=== PATIENT | female | born 1940 | race Two or more races ===

== ENCOUNTER 2017-11-09 21:23 | Emergency (ER) | payer MEDICARE, OTHER ==
[~2017-11-09] VITALS: Ht 157.5 cm; Wt 72.6 kg
[~2017-11-09 21:23] MED LIST: ANTIVERT12.5 MG ORAL; COLACE100 MG ORAL; NORCO 5-325 TA1 EACH ORAL
[2017-11-09] MEDS ORDERED: AZITHROMYC200 MG/5 M ORAL (21:35)
[2017-11-09] MEDS ORDERED: SINGULAIR10 MG ORAL (21:35)
[2017-11-09] MEDS ORDERED: ALBUTEROL SULF8.5 GM INH (21:35)
[2017-11-09] MEDS ORDERED: MEDROL DOSEPAK4 MG ORAL (21:35)
[2017-11-09 21:44] VITALS: BP 153/64
[2017-11-09] MEDS ORDERED: Sodium Chloride 500ML 500 ML IV ONE (21:44)
[2017-11-09] MEDS ORDERED: Solu-MEDROL 125mg Inj IVP ONE (22:00)
[2017-11-09] MEDS: Albuterol ud Inhalation HHN SCH ×3 (22:10→22:12)
[2017-11-09] MEDS: Ipratropium 0.02% Inh Soln 2.5ml UD HHN SCH ×2 (22:10→22:11)
[2017-11-09 22:36] LABS: APPEARANCE,URINE CLEAR; BILIRUBIN, URINE NEGATIVE (NEGATIVE); COLOR,URINE PALE YELLOW; GLUCOSE, URINE (UA) NEGATIVE (NEGATIVE); KETONES,URINE NEGATIVE (NEGATIVE); LEUKOCYTE ESTERASE ,URINE 1+ (NEGATIVE); NITRITE,URINE NEGATIVE (NEGATIVE); PH,URINE 6 (4.5-8.0); PROTEIN,URINE NEGATIVE (NEGATIVE); UROBILINOGEN,URINE NORMAL MG/DL (0.0-1.0)
[2017-11-09 22:36] LABS: BASOPHILS % (AUTO) 0.5 % (0.0-2.0); EOSINOPHILS % (AUTO) 0.1 % (0.0-3.0); HEMATOCRIT 41.6 % (37.0-47.0); HEMOGLOBIN 13.9 G/DL (12.0-16.0); LYMPHOCYTES % (AUTO) 20.4 % (20.0-45.0); MEAN CORPUSCULAR VOLUME 95 FL (80-99); MONOCYTES % (AUTO) 4.5 % (1.0-10.0); NEUTROPHILS % (AUTO) 74.6 % (45.0-75.0); PLATELET COUNT 236 K/UL (150-450); RED BLOOD COUNT 4.38 M/UL (4.20-5.40); RED CELL DISTRIBUTION WIDTH 12.7 % (11.6-14.8); WHITE BLOOD COUNT 5.3 K/UL (4.8-10.8)
[2017-11-09 22:44] LABS: ANION GAP 10 mmol/L (5-15); BLOOD UREA NITROGEN 14 mg/dL (7-18); CALCIUM 9.7 MG/DL (8.5-10.1); CARBON DIOXIDE 26 MMOL/L (21-32); CHLORIDE 102 MMOL/L (98-107); CREATININE 0.9 MG/DL (0.55-1.30); POTASSIUM 4.7 MMOL/L (3.5-5.1); SODIUM 138 MMOL/L (136-145)
[2017-11-09 22:57] LABS: ALANINE AMINOTRANSFERASE 28 U/L (12-78); ALBUMIN 3.7 G/DL (3.4-5.0); ALKALINE PHOSPHATASE 85 U/L (46-116); ASPARTATE AMINO TRANSFERASE 24 U/L (15-37); BILIRUBIN,TOTAL 0.2 MG/DL (0.2-1.0); CKMB 1.7 NG/ML (0.0-3.6); CREATINE KINASE 62 U/L (26-308)
[2017-11-09 23:00] VITALS: BP 146/57
[2017-11-09] MEDS ORDERED: AMOXICILLIN500 MG ORAL (23:23)
[2017-11-10 00:05] VITALS: BP 146/57
--- NOTE | 2017-11-10 00:59 | Emergency Room Report ---
History of Present Illness General Chief Complaint: Dyspnea/Respdistress Source: Patient Present Illness HPI 77-year-old female presents ED for evaluation. States that she is having cough and congestion for the last 5 days. Cough is productive of yellowish phlegm. seen by PMD and was prescribed Z-Ken, albuterol. States her cough is persisting. Denies fevers or chills. Denies chest pain. States she short of breath. History of asthma. Denies contacts or recent travel. No other aggravating relieving factors. Denies any other associated symptoms Allergies: Coded Allergies: No Known Allergies (Verified Allergy, Unknown, 01/01/10) Patient History Past Medical History: HTN, asthma Past Surgical History: none Pertinent Family History: none Social History: Denies: smoking, alcohol use, drug use Now: No Immunizations: UTD Reviewed Nursing Documentation: PMH: Agreed, PSxH: Agreed Nursing Documentation-PMH Past Medical History: No History, Except For Hx Cardiac Problems: No - High Cholesterol Hx Hypertension: Yes Hx Pacemaker: No Hx Asthma: Yes Hx COPD: No Hx Diabetes: Yes - Borderline Hx Cancer: No Hx Gastrointestinal Problems: No Hx Dialysis: No Hx Cerebrovascular Accident: No Hx Seizures: No Review of Systems All Other Systems: negative except mentioned in HPI Physical Exam Vital Signs Date Time Temp Pulse Resp B/P (MAP) Pulse Ox O2 Delivery O2 Flow Rate FiO2 11/09/17 21:28 97.9 75 16 150/82 99 Room Air 11/09/17 22:12 21 Sp02 EP Interpretation: reviewed, normal General Appearance: no apparent distress, alert, GCS 15, non-toxic Head: normocephalic, atraumatic Eyes: bilateral eye normal inspection, bilateral eye PERRL ENT: hearing grossly normal, normal pharynx, no angioedema, normal voice Neck: full range of motion, supple/symm/no masses Respiratory: chest non-tender, normal breath sounds, speaking full sentences, wheezing Cardiovascular #1: regular rate, rhythm, no edema Cardiovascular #2: 2+ carotid (R), 2+ carotid (L), 2+ radial (R), 2+ radial (L) , 2+ dorsalis pedis (R), 2+ dorsalis pedis (L) Gastrointestinal: normal bowel sounds, non tender, soft, non-distended, no guarding, no rebound Rectal: deferred Genitourinary: normal inspection, no CVA tenderness Musculoskeletal: back normal, gait/station normal, normal range of motion, non- tender Neurologic: alert, oriented x3, responsive, motor strength/tone normal, sensory intact, speech normal Psychiatric: judgement/insight normal, memory normal, mood/affect normal, no suicidal/homicidal ideation Reflexes: 3+ bicep (R), 3+ bicep (L), 3+ tricep (R), 3+ tricep (L), 3+ knee (R) , 3+ knee (L) Skin: normal color, no rash, warm/dry, well hydrated Lymphatic: no adenopathy Medical Decision Making Diagnostic Impression: Primary Impression: Atypical pneumonia ER Course Hospital Course 77-year-old female presents to ED complaining of wheezing, cough Differential diagnoses include: URI, bronchitis, asthma/COPD, pneumonia Clinical course Patient placed on stretcher. After initial history, physical exam reveals an elderly female in no acute distress. Bilateral TM unremarkable. No pharyngeal erythema. No tonsillar exudates. No lymphadenopathy. wheezing I ordered labs, IV fluids, nebs, solumedrol, ekg, chest x-ray. Labs reviewed-no leukocytosis, hemoglobin/hematocrit stable, electrolytes okay, trop negative, EKG - NSR, no acute ischemic changes interpreted by me Chest x-ray shows RLL atelectasis ? consolidation On reassessment patient states she feels better. Per curb-65 criteria, patient does not require admission. Patient can be safely discharged to home with outpatient therapy. Patient agrees with plan. Diagnosis - atypical pneumonia Stable and discharged home with prescriptions for amoxicillin. Instructed to followup with PMD. Return to ED if symptoms recur or worsen Labs Test 11/09/17 22:00 11/09/17 22:20 White Blood Count 5.3 K/UL (4.8-10.8) Red Blood Count 4.38 M/UL (4.20-5.40) Hemoglobin 13.9 G/DL (12.0-16.0) Hematocrit 41.6 % (37.0-47.0) Mean Corpuscular Volume 95 FL (80-99) Mean Corpuscular Hemoglobin 31.8 PG (27.0-31.0) Mean Corpuscular Hemoglobin Concent 33.5 G/DL (32.0-36.0) Red Cell Distribution Width 12.7 % (11.6-14.8) Platelet Count 236 K/UL (150-450) Mean Platelet Volume 8.9 FL (6.5-10.1) Neutrophils (%) (Auto) 74.6 % (45.0-75.0) Lymphocytes (%) (Auto) 20.4 % (20.0-45.0) Monocytes (%) (Auto) 4.5 % (1.0-10.0) Eosinophils (%) (Auto) 0.1 % (0.0-3.0) Basophils (%) (Auto) 0.5 % (0.0-2.0) Sodium Level 138 MMOL/L (136-145) Potassium Level 4.7 MMOL/L (3.5-5.1) Chloride Level 102 MMOL/L (98-107) Carbon Dioxide Level 26 MMOL/L (21-32) Anion Gap 10 mmol/L (5-15) Blood Urea Nitrogen 14 mg/dL (7-18) Creatinine 0.9 MG/DL (0.55-1.30) Estimat Glomerular Filtration Rate mL/min (>60) Glucose Level 148 MG/DL (74-106) Lactic Acid Level 2.40 mmol/L (0.66-2.22) Calcium Level 9.7 MG/DL (8.5-10.1) Total Bilirubin 0.2 MG/DL (0.2-1.0) Aspartate Amino Transf (AST/SGOT) 24 U/L (15-37) Alanine Aminotransferase (ALT/SGPT) 28 U/L (12-78) Alkaline Phosphatase 85 U/L (46-116) Total Creatine Kinase 62 U/L (26-308) Creatine Kinase MB 1.7 NG/ML (0.0-3.6) Creatine Kinase MB Relative Index 2.7 Troponin I 0.000 ng/mL (0.000-0.056) Pro-B-Type Natriuretic Peptide 75 pg/mL (0-125) Total Protein 7.5 G/DL (6.4-8.2) Albumin 3.7 G/DL (3.4-5.0) Globulin 3.8 g/dL Albumin/Globulin Ratio 1.0 (1.0-2.7) Urine Color Pale yellow Urine Appearance Clear Urine pH 6 (4.5-8.0) Urine Specific Lee 1.005 (1.005-1.035) Urine Protein Negative (NEGATIVE) Urine Glucose (UA) Negative (NEGATIVE) Urine Ketones Negative (NEGATIVE) Urine Occult Blood Negative (NEGATIVE) Urine Nitrite Negative (NEGATIVE) Urine Bilirubin Negative (NEGATIVE) Urine Urobilinogen Normal MG/DL (0.0-1.0) Urine Leukocyte Esterase 1+ (NEGATIVE) Urine RBC 0-2 /HPF (0 - 2) Urine WBC 2-4 /HPF (0 - 2) Urine Squamous Epithelial Cells Few /LPF (NONE/OCC) Urine Bacteria Few /HPF (NONE) EKG Diagnostic Results Rate: normal Rhythm: NSR ST Segments: no acute changes ASA given to the pt in ED: No Rhythm Strip Diag. Results EP Interpretation: yes Rhythm: NSR, no PVC's, no ectopy Chest X-Ray Diagnostic Results Chest X-Ray Diagnostic Results : Chest X-Ray Ordered: Yes # of Views/Limited/Complete: 1 View Indication: Other - cough EP Interpretation: Yes Interpretation: no pneumothorax, no acute cardiopulmonary disease, other - atelectasis RLL Impression: Other - ?PNA Electronically Signed by: Electronically signed by Duc Trimble MD Last Vital Signs Date Time Temp Pulse Resp B/P (MAP) Pulse Ox O2 Delivery O2 Flow Rate FiO2 11/10/17 00:05 97.9 82 14 146/57 95 Room Air 21 Status: improved Disposition: HOME, SELF-CARE Condition: Stable Scripts Amoxicillin* (AMOXIL*) 500 Mg Capsule 500 MG ORAL THREE TIMES A DAY, #21 CAP Prov: DUC TRIMBLE M.D. 11/09/17 Patient Instructions: Community-Acquired Pneumonia, Adult, [id number] DUC TRIMBLE M.D. Nov 10, 2017 00:59
--- NOTE | 2017-11-10 10:06 | Diagnostic Imaging Report ---
Indication: Dyspnea Technique: XRAY Chest 1v Comparison: 01/31/2013 Findings: Heart size and mediastinal contours are within normal limits. There is subtle hazy asymmetric opacity in the right lower lung. There is no pleural effusion or pneumothorax. There are degenerative changes of the spine. No acute osseous abnormality seen. Impression: Subtle hazy opacity in the right lower lung possibly related to subsegmental atelectasis. Developing infectious infiltrate not entirely excluded. Clinical correlation and follow-up exam recommended. This corresponds with the preliminary interpretation of the treating ER physician as documented in the electronic medical record.
--- NOTE | 2017-11-15 14:51 | Cardiology Report ---
APPROVED REPORT EKG Measurement Heart [id number] Normal sinus rhythm Low voltage QRS Borderline ECG
== END 2017-11-10 00:05 | disposition home or self-care (01) ==
LOC: EMR 22:12
DX: J18.9 Pneumonia, unspecified organism (principal); I10 Essential (primary) hypertension; J45.909 Unspecified asthma, uncomplicated
CPT/HCPCS: 36415; 71045; 80053; 81003; 82550; 82553; 83605; 83880; 84484; 85025; 86710; 87040; 93005; 94640; 94664; 96361; 96374; 99284; J2930

== ENCOUNTER 2018-09-21 10:20 | Emergency (ER) | payer MEDICARE, OTHER ==
[~2018-09-21] VITALS: Ht 157.5 cm; Wt 74.8 kg
[~2018-09-21 10:20] MED LIST changes: +ALBUTEROL SULF8.5 GM INH; +AMOXICILLIN500 MG ORAL; +AZITHROMYC200 MG/5 M ORAL; +MEDROL DOSEPAK4 MG ORAL; +SINGULAIR10 MG ORAL
[2018-09-21 10:30] VITALS: BP 153/56
--- NOTE | 2018-09-21 10:34 | Emergency Room Report ---
History of Present Illness General Chief Complaint: cough Source: Patient Present Illness HPI Patient presents with complaints of cough and congestion over the past 2 days Daughter denies any fevers Reports that she had the flu shot this year however no Pneumovax Denies any chest pain with this denies any back or flank pain Denies any vomiting or diarrhea Denies any recent travel Denies any rash denies any change in medications Denies any chest pain or heaviness with this Allergies: Coded Allergies: No Known Allergies (Verified Allergy, Unknown, 01/01/10) Patient History Past Medical History: see triage record Pertinent Family History: none Reviewed Nursing Documentation: PMH: Agreed; PSxH: Agreed Nursing Documentation-PMH Hx Cardiac Problems: No - High Cholesterol Hx Hypertension: Yes Hx Pacemaker: No Hx Asthma: Yes Hx COPD: No Hx Diabetes: Yes - Borderline Hx Cancer: No Hx Gastrointestinal Problems: No Hx Dialysis: No Hx Cerebrovascular Accident: No Hx Seizures: No Review of Systems All Other Systems: negative except mentioned in HPI Physical Exam 98% on room air which is normal Sp02 EP Interpretation: reviewed, normal General Appearance: well appearing, no apparent distress Head: normocephalic, atraumatic Eyes: bilateral eye PERRL, bilateral eye EOMI ENT: hearing grossly normal, normal pharynx, TMs + canals normal, uvula midline Neck: full range of motion, supple, no meningismus, no bony tend Respiratory: lungs clear, normal breath sounds, no rhonchi, no respiratory distress, no retraction, no accessory muscle use Cardiovascular #1: normal peripheral pulses, regular rate, rhythm, no edema, no gallop, no JVD, no murmur Gastrointestinal: normal bowel sounds, non tender, soft, no mass, no organomegaly, non-distended, no guarding, no hernia, no pulsatile mass, no rebound Genitourinary: no CVA tenderness Musculoskeletal: normal inspection Neurologic: oriented x3, responsive, 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, motor strength/ tone normal, sensory intact Psychiatric: mood/affect normal Skin: normal color, no rash, warm/dry, palpation normal Lymphatic: normal inspection, no adenopathy Medical Decision Making Diagnostic Impression: Primary Impression: URI (upper respiratory infection) ER Course Patient is a fairly complex patient with multiple differential to consideration including but not limited to cardiac cardiopulmonary and vascular emergencies Patient's imaging and blood work are at baseline levels Patient continues to saturate well Findings and exam is consistent with upper respiratory infection and patient stable for close outpatient follow-up Labs Test 09/21/18 10:40 White Blood Count 5.7 K/UL (4.8-10.8) Red Blood Count 4.60 M/UL (4.20-5.40) Hemoglobin 13.9 G/DL (12.0-16.0) Hematocrit 42.7 % (37.0-47.0) Mean Corpuscular Volume 93 FL (80-99) Mean Corpuscular Hemoglobin 30.1 PG (27.0-31.0) Mean Corpuscular Hemoglobin Concent 32.4 G/DL (32.0-36.0) Red Cell Distribution Width 11.8 % (11.6-14.8) Platelet Count 229 K/UL (150-450) Mean Platelet Volume 8.7 FL (6.5-10.1) Neutrophils (%) (Auto) 53.3 % (45.0-75.0) Lymphocytes (%) (Auto) 30.0 % (20.0-45.0) Monocytes (%) (Auto) 11.3 % (1.0-10.0) Eosinophils (%) (Auto) 4.0 % (0.0-3.0) Basophils (%) (Auto) 1.4 % (0.0-2.0) Sodium Level 140 MMOL/L (136-145) Potassium Level 4.1 MMOL/L (3.5-5.1) Chloride Level 104 MMOL/L (98-107) Carbon Dioxide Level 28 MMOL/L (21-32) Anion Gap 8 mmol/L (5-15) Blood Urea Nitrogen 9 mg/dL (7-18) Creatinine 0.7 MG/DL (0.55-1.30) Estimat Glomerular Filtration Rate mL/min (>60) Glucose Level 73 MG/DL (74-106) Calcium Level 9.6 MG/DL (8.5-10.1) Total Bilirubin 0.3 MG/DL (0.2-1.0) Aspartate Amino Transf (AST/SGOT) 16 U/L (15-37) Alanine Aminotransferase (ALT/SGPT) 36 U/L (12-78) Alkaline Phosphatase 104 U/L (46-116) Total Creatine Kinase 73 U/L (26-308) Creatine Kinase MB 1.1 NG/ML (0.0-3.6) Creatine Kinase MB Relative Index 1.5 Troponin I 0.001 ng/mL (0.000-0.056) Pro-B-Type Natriuretic Peptide 111 pg/mL (0-125) Total Protein 7.4 G/DL (6.4-8.2) Albumin 3.8 G/DL (3.4-5.0) Globulin 3.6 g/dL Albumin/Globulin Ratio 1.1 (1.0-2.7) Rhythm Strip Diag. Results EP Interpretation: yes Rate: 60 Rhythm: NSR, no PVC's, no ectopy Chest X-Ray Diagnostic Results Chest X-Ray Diagnostic Results : Chest X-Ray Ordered: Yes # of Views/Limited/Complete: 1 View Indication: Shortness of Breath EP Interpretation: Yes Interpretation: no consolidation, no effusion, no pneumothorax, other Impression: Other - Mild atelectasis bilaterally Electronically Signed by: Milady Vega DO Status: improved Disposition: HOME, SELF-CARE Condition: Improved Scripts Promethazine HCl/Codeine (Prometh-Codein 6.25-10 mg/5 ml) 5 Ml Syrup 5 ML PO Q8HR for 5 Days, ML Prov: Milady Vega DO 09/21/18 Additional Instructions: Patient is provided with the discharge instructions notified to follow up with primary doctor in the next 2-3 days otherwise return to the er with any worsening symptoms. Please note that this report is being documented using [employer]oco[employer] technology. This can lead to erroneous entry secondary to incorrect interpretation by the dictating instrument. Milady Vega DO Sep 21, 2018 10:34
[2018-09-21] MEDS ORDERED: Levalbuterol Inh UD 1.25mg/0.5ml HHN ONE (11:00)
[2018-09-21 11:05] LABS: BASOPHILS % (AUTO) 1.4 % (0.0-2.0); HEMATOCRIT 42.7 % (37.0-47.0); HEMOGLOBIN 13.9 G/DL (12.0-16.0); MEAN CORPUSCULAR VOLUME 93 FL (80-99); MONOCYTES % (AUTO) 11.3 % (1.0-10.0); NEUTROPHILS % (AUTO) 53.3 % (45.0-75.0); PLATELET COUNT 229 K/UL (150-450); RED CELL DISTRIBUTION WIDTH 11.8 % (11.6-14.8); WHITE BLOOD COUNT 5.7 K/UL (4.8-10.8)
[2018-09-21 11:10] LABS: ANION GAP 8 mmol/L (5-15); BLOOD UREA NITROGEN 9 mg/dL (7-18); CALCIUM 9.6 MG/DL (8.5-10.1); CARBON DIOXIDE 28 MMOL/L (21-32); CHLORIDE 104 MMOL/L (98-107); CREATININE 0.7 MG/DL (0.55-1.30); POTASSIUM 4.1 MMOL/L (3.5-5.1); SODIUM 140 MMOL/L (136-145)
[2018-09-21 11:25] LABS: ALANINE AMINOTRANSFERASE 36 U/L (12-78); ALBUMIN 3.8 G/DL (3.4-5.0); ALBUMIN/GLOBULIN RATIO 1.1 (1.0-2.7); ALKALINE PHOSPHATASE 104 U/L (46-116); ASPARTATE AMINO TRANSFERASE 16 U/L (15-37); BILIRUBIN,TOTAL 0.3 MG/DL (0.2-1.0); CKMB 1.1 NG/ML (0.0-3.6); CREATINE KINASE 73 U/L (26-308)
--- NOTE | 2018-09-21 11:34 | Diagnostic Imaging Report ---
EXAM: XR Chest, 1 View CLINICAL HISTORY: Shortness of breath TECHNIQUE: Frontal view of the chest. COMPARISON: Chest x-rays dated 11/09/17 FINDINGS: Lungs: Mild subsegmental atelectasis versus scarring at the periphery of the right lung base, not significantly changed compared to the prior chest x-ray. The lungs are otherwise clear. Pleural space: Unremarkable. The costophrenic angles are sharp. No visible pneumothorax. Heart: Unremarkable. No cardiomegaly. Mediastinum: Unremarkable. Bones/joints: Unremarkable. Tubes, lines and devices: EKG leads overlie the thorax. IMPRESSION: Mild subsegmental atelectasis versus scarring at the periphery of the right lung base, not significantly changed compared to the prior chest x- ray.
[2018-09-21] MEDS ORDERED: PROMETH-CODEIN 65 ML PO (11:40)
[2018-09-21 11:51] VITALS: BP 135/56
--- NOTE | 2018-09-22 14:19 | Cardiology Report ---
APPROVED REPORT EKG Measurement Heart [id number] Sinus rhythm with premature atrial complexes Otherwise normal ECG
== END 2018-09-21 11:53 | disposition home or self-care (01) ==
LOC: EMR 11:02
DX: J06.9 Acute upper respiratory infection, unspecified (principal); I10 Essential (primary) hypertension; J45.909 Unspecified asthma, uncomplicated
CPT/HCPCS: 36415; 71045; 80053; 82550; 82553; 83880; 84484; 85025; 93005; 94640; 94664; 99284; J7644

== ENCOUNTER 2020-12-13 09:21 | Outpatient (CLI) | payer MEDICARE, OTHER ==
[~2020-12-13 09:21] MED LIST changes: +PROMETH-CODEIN 65 ML PO
[2020-12-13 09:44] VITALS: BP 146/63
[2020-12-13] MEDS ORDERED: METFORMIN HCL500 M1 ORAL (09:45)
[2020-12-13] MEDS ORDERED: LINZESS145 MCG PO (10:34)
--- NOTE | 2020-12-13 10:43 | Consultation ---
DATE OF CONSULTATION: 12/13/2020 REFERRING PHYSICIAN: Adolph Mathias MD. CHIEF COMPLAINT: Referral for screening colonoscopy, chronic constipation, chronic GERD. PAST MEDICAL HISTORY: 1. Asthma. 2. Diabetes. 3. Colonic polyps. PAST SURGICAL HISTORY: None. MEDICATIONS: Albuterol, Singulair, metformin, Linzess. FAMILY HISTORY: Noncontributory. SOCIAL HISTORY: The patient denies any tobacco, alcohol, or drug use. ALLERGIES: No known allergies. REVIEW OF SYSTEMS: As dictated above. PHYSICAL EXAMINATION: VITAL SIGNS: Temperature 97.5, blood pressure 146/53, pulse 60, respirations 20. HEENT: Normocephalic and atraumatic. Sclerae anicteric. NECK: Supple. No evidence of obvious lymphadenopathy. CARDIOVASCULAR: Regular rate and rhythm. Plus S1, S2. LUNGS: Clear to auscultation bilaterally. ABDOMEN: Positive bowel sounds. Soft and nontender. No rebound. No guarding. No peritoneal sign. EXTREMITIES: No cyanosis, no clubbing, no edema. ASSESSMENT/PLAN: This is an 80-year-old female with chronic GERD to the point that her voice has changed without any response to PPI, already seen by ENT. Recommended to have an endoscopy. Plan for EGD. In terms of colonoscopy, the patient has history of colonic polyps, suffers from chronic constipation on Linzess. She will benefit from colonoscopy at the same time. We will plan for EGD and colonoscopy. I want to thank Dr. Adolph Mathias for this kind referral. Adolph Cast M.D. DR: Gordo JOB#: [id number] CC: Adolph Mathias M.D.; Fax#: [phone]
== END 2020-12-13 12:04 | disposition home or self-care (01) ==
LOC: PAN 09:21
DX: K21.9 Gastro-esophageal reflux disease without esophagitis (principal); K59.09 Other constipation; E11.9 Type 2 diabetes mellitus without complications; Z86.010 Personal history of colon polyps; Z79.84 Long term (current) use of oral hypoglycemic drugs; Z88.8 Allergy status to other drugs, medicaments and biological substances
CPT/HCPCS: 99203